=== PATIENT | female | born 1980 | race Asian ===

== ENCOUNTER 2019-07-28 19:27 | Emergency (ER) | payer OTHER | END 2019-07-29 00:24 | disposition home or self-care (01) | LOC: JER 07-29 00:24 | DX: R51 Headache (principal); E03.9 Hypothyroidism, unspecified ==

== ENCOUNTER 2023-06-12 03:58 | Day surgery (SDC) | payer BC, OTHER ==
[2023-06-06 14:56] VITALS: BMI 29.7
[2023-06-12] MEDS ORDERED: ONDANSETRON 4 MG/2 ML VIAL IVPUSH PRN (10:55)
[2023-06-12] MEDS ORDERED: oxyCODONE HCL 5 MG TABLET PO PRN (10:55)
[2023-06-12] MEDS ORDERED: LACTATED RINGERS SOLUTION 1,000 ML IV SCH (11:00)
[2023-06-12] MEDS ORDERED: MIDAZOLAM HCL 2 MG/2 ML SINGLE DOSE VIAL ONE (11:01)
[2023-06-12] MEDS ORDERED: LIDOCAINE HCL/PF 2% SDV 5ML VIAL ONE (11:02)
[2023-06-12] MEDS ORDERED: PROPOFOL 20 ML ONE (11:02)
[2023-06-12] MEDS ORDERED: ceFAZolin SODIUM 1 GM VIAL IVPB ONE (11:30)
[2023-06-12] MEDS ORDERED: ELECTROLYTE-148 SOLN 1,000 ML IV SCH (11:30)
[2023-06-12] MEDS ORDERED: ceFAZolin SODIUM 1 GM VIAL ONE (11:43)
[2023-06-12] MEDS ORDERED: DEXAMETHASONE SOD PHOSPHATE 4 MG/1 ML VIAL ONE (11:43)
[2023-06-12] MEDS ORDERED: ONDANSETRON 4 MG/2 ML VIAL ONE (11:43)
[2023-06-12] MEDS ORDERED: LIDOCAINE 2%/EPINEPHRINE 1:100000 (50 ML MD VIAL) INF ONE ×2 (11:46)
[2023-06-12 13:40] VITALS: RESP 20; TEMP 98
[2023-06-12 15:05] VITALS: BP 115/60; PULSE 58
== END 2023-06-12 14:50 | disposition home or self-care (01) ==
LOC: JASU-SURG 03:58
PROVIDERS: ATTEND Urology
PROC: 0TSD0ZZ Reposition Urethra, Open Approach (ICD-10-PCS; 2023-06-12)
PROC: 0JQC0ZZ Repair Pelvic Region Subcutaneous Tissue and Fascia, Open Approach (ICD-10-PCS; principal; 2023-06-12 11:30)
DX: N39.3 Stress incontinence (female) (male) (principal); N81.10 Cystocele, unspecified
CPT/HCPCS: 57240; 57288; C1771; 81025; 88304-TC; 94760